=== PATIENT | male | born 1980 | race Caucasian/White ===

== ENCOUNTER 2022-04-14 11:38 | Emergency (ER) | payer MEDICAID ==
[2022-04-14] MEDS ORDERED: Albuterol/Ipratropium 3.0-0.5 MG/3 ML Neb Soln NEB ONE ×2 (13:10→13:38)
[2022-04-14] MEDS ORDERED: methylPREDNISolone Sodium Succinate 40 MG/1 ML SDV IM ONE (13:11)
[2022-04-14 13:56] LABS: CORONAVIRUS COVID-19 NAA NEGATIVE (NEGATIVE)
[2022-04-14 14:17] LABS: ESTIMATED GFR 113 mL/min (>60)
== END 2022-04-14 15:20 | disposition home or self-care (01) ==
LOC: JD.ED 11:38
DX: J45.21 Mild intermittent asthma with (acute) exacerbation (principal); Z79.899 Other long term (current) drug therapy; Z20.822 Contact with and (suspected) exposure to COVID-19
CPT/HCPCS: 0241U; 36415; 71046; 80053; 85025; 86140; 94640; 96372; 99285; J2920; J7620-GY